=== PATIENT | female | born 1985 | race Caucasian/White ===

== ENCOUNTER 2016-11-22 09:58 | Outpatient (CLI) | payer BC ==
--- NOTE | 2016-11-22 13:01 | DIAGNOSTIC IMAGING REPORT ---
PROCEDURE: US OB RE-EVALUATION INDICATION: MEASURING SMALL TECHNIQUE: Jimenez scale, color, and spectral Doppler images of the second trimester gravid uterus were obtained. COMPARISON: 08/01/2016 OB ultrasound FINDINGS: A single living intrauterine is in vertex presentation. There is regular cardiac activity at a rate of 155 beats per minute. The placenta is anterior and away from the internal cervical os. The cervix is closed measuring approximately 3.2 cm in length. The amniotic fluid volume is subjectively normal at the 19.2 cm which represents approximately the 70th percentile. Biparietal diameter 8.5 cm at 34 weeks and 2 days Head circumference 30.8 cm at 34 weeks and 2 days Abdominal circumference 30.3 cm at 34 weeks and 2-days Femur length 6.7 cm at 34 weeks and 2-days Head to abdominal circumference ratio and femur length to abdominal circumference ratios are normal. Estimated weight 2395 g Composite gestational age 34 weeks and 2 days, CORTNEY 01/01/2017 Chest, stomach, bladder and kidneys are normal. IMPRESSION: 1. Single living intrauterine with a composite gestational age of 34 weeks and 2 days, CORTNEY 01/01/2017 2. Symmetric and normal anatomy. 3. Size less than dates by 1 week and 1 day
== END 2016-11-22 23:00 ==
LOC: US SRH 09:58
DX: Z34.93 Encounter for supervision of normal pregnancy, unspecified, third trimester (principal); Z3A.34 34 weeks gestation of pregnancy

== ENCOUNTER 2016-12-07 12:48 | Outpatient (CLI) | payer BC ==
--- NOTE | 2016-12-07 16:10 | DIAGNOSTIC IMAGING REPORT ---
PROCEDURE: US OB RE-EVALUATION INDICATION: SMALL FOR DATES TECHNIQUE: Jimenez scale, color and spectral Doppler images of the gravid uterus. COMPARISON: OB ultrasound 11/22/2016 and 08/01/2016. FINDINGS: Single intrauterine with vertex presentation, anterior placenta without previa and heart [id number] bpm. GINGER measures 10.7 cm. Closed cervix measures 2.8 cm. BPD 8.9 cm, 36 weeks 1 day; head circumference 32.0 cm, 36 weeks 1 day; abdominal circumference 31.9 cm, 43-hlxa-4-day; femur length 7 cm, 36 weeks. Composite ultrasound age 36 weeks. CORTNEY 01/04/2017. Estimated weight 2801 g plus/minus 420 g (6.18 pounds). IMPRESSION: 1. Single live intrauterine , vertex, 36 weeks 2. CORTNEY of 01/04/2017, 3 days delayed growth from the prior ultrasound 3. Symmetric growth parameters
--- NOTE | 2016-12-07 16:10 | DIAGNOSTIC IMAGING REPORT ---
PROCEDURE: US OB RE-EVALUATION INDICATION: SMALL FOR DATES TECHNIQUE: Jimenez scale, color and spectral Doppler images of the gravid uterus. COMPARISON: OB ultrasound 11/22/2016 and 08/01/2016. FINDINGS: Single intrauterine with vertex presentation, anterior placenta without previa and heart [id number] bpm. GINGER measures 10.7 cm. Closed cervix measures 2.8 cm. BPD 8.9 cm, 36 weeks 1 day; head circumference 32.0 cm, 36 weeks 1 day; abdominal circumference 31.9 cm, 36-vyjm-1-day; femur length 7 cm, 36 weeks. Composite ultrasound age 36 weeks. CORTNEY 01/04/2017. Estimated weight 2801 g plus/minus 420 g (6.18 pounds). IMPRESSION: 1. Single live intrauterine , vertex, 36 weeks 2. CORTNEY of 01/04/2017, 3 days delayed growth from the prior ultrasound 3. Symmetric growth parameters
== END 2016-12-07 23:00 ==
LOC: US SRH 12:48
DX: Z34.93 Encounter for supervision of normal pregnancy, unspecified, third trimester (principal); Z3A.36 36 weeks gestation of pregnancy

== ENCOUNTER 2016-12-10 01:37 | Inpatient (IN) | payer BC ==
[2016-12-10] VITALS (8 sets, daily range): BP systolic 107–132; BP diastolic 53–67
[~2016-12-10] VITALS: Ht 165.1 cm; Wt 59.9 kg
[2016-12-10] MEDS ORDERED: PRENATAL VITAMINS PO (03:45)
[2016-12-10] MEDS ORDERED: DICLEGIS PO (03:58)
--- NOTE | 2016-12-10 13:34 | DIAGNOSTIC IMAGING REPORT ---
PROCEDURE: MR LUMBAR SPINE W/O CONTRAST INDICATION: NUMB RIGHT LOWER EXTREMITY TECHNIQUE: Noncontrast T1, T2, and STIR sagittal images. T1 and T2 axial images. COMPARISON: None. FINDINGS: L1-2: Normal. L2-3: Normal. L3-4: Normal. L4-5: Normal. L5-S1: Normal. IMPRESSION: 1. Normal MRI of the lumbar spine.
[2016-12-11 00:15] VITALS: BP 104/71
[2016-12-11 03:50] VITALS: BP 103/64
[2016-12-11 09:45] VITALS: BP 102/68
--- NOTE | 2016-12-11 11:44 | Provider's Discharge Care Plan ---
Problem, Goal, Plan Problem List 1. Vaginal delivery Goals: Improve disease control Instructions: Follow up as directed
--- NOTE | 2016-12-11 11:44 | Provider's Discharge Care Plan ---
Problem, Goal, Plan Problem List 1. Vaginal delivery Goals: Improve disease control Instructions: Follow up as directed
== END 2016-12-11 14:31 | disposition home or self-care (01) | DRG 774 ==
LOC: OBC SRH 01:37 → OB SRH 01:51 → OBC SRH 02:20 → OB SRH 15:47
PROVIDERS: ADMIT Obstetrics & Gynecology
PROC: 0KQM0ZZ Repair Perineum Muscle, Open Approach (ICD-10-PCS; principal; 2016-12-10)
PROC: 10E0XZZ Delivery of Products of Conception, External Approach (ICD-10-PCS; principal; 2016-12-10)
DX: O70.1 Second degree perineal laceration during delivery (principal); Z37.0 Single live birth; O74.6 Other complications of spinal and epidural anesthesia during labor and delivery; R20.8 Other disturbances of skin sensation; T41.3X5A Adverse effect of local anesthetics, initial encounter; Z3A.38 38 weeks gestation of pregnancy
CPT/HCPCS: 40011; 82221; 83411; 83475; 84038; 90074; 91162; 91163; 91295; 92237